=== PATIENT | female | born 1970 | race Native Hawaiian/Other Pacific Islander ===

== ENCOUNTER 2018-03-19 09:30 | Outpatient (AMBR) | payer MEDICAID, SELFPAY ==
--- NOTE | 2018-03-12 16:17 | PT.ODAYNRPT ---
PT Outpatient Daily Note Date of Service: March 12, 2018 OP Daily Note Visit Reasons: hand pain Outpatient Physical Therapy Treatment Date: 03/12/18 Subjective: pt had no complaints upon visit as she was feeling well. Objective: see flow sheet. Assessment: increased the number of reps for exercises in which pt did not c/o increased pain or discomfort. she was able to complete all reps with no difficulty. muscle fatigue during and after wrist roll up and she has to take breaks in between reps. no facial expressions noted during ther ex. pt has no questions post ther ex. Plan: continue POC per PT. Length of Time (minutes) of Treatment: 30 Minutes Office Procedures PT Procedures PT Date of Service: 03/12/18 Therapeutic Exercise 30 minutes: Yes
--- NOTE | 2018-03-19 10:00 | PT.ODS1RPT ---
PT OP Progress/Discharge Note Date of Service: March 19, 2018 Progress Note/DC Note Progress Note/Discharge Note: DC Note Patient Information Pediatric or Adult Patient: Adult PT >13 Visit Reasons: hand pain Medical Diagnosis: Carpal tunnel syndrome Treatment Dx #1: Hand pain Treatment Dx #2: muscle weakness Service Continue Service or Discharge: Discharge Physical Therapy Outpatient Service Dates: From: / To:: 11/17/2017 to 03/19/2018 Discharge Date: 03/19/18 Status Subjective: 47 y/o male who was seen here in this office for bilateral hand pain evaluated last 11/17/2017. patient states she feels better after therapy but it is only short term for a few hours. She feels pain after wards. She said she was wearing her hand brace as needed. PS 5/10 to 6/10. she states she will see her MD too for her back pain. Objective: PS 5/10 to 6/10 at worst R hand studio manager 40lbs, L hand studio manager 20lbs ms strength on biceps and triceps 4/5 I with HEP Assessment: patient was seen in this office for evaluation and 10 tx sessions. Patient has no significant improvement noted. She still has pain. The therapy effect is only short term. Patient were advised to see her PCP for follow up and for further instructions or management. As of this time patient reached maximum rehab potential. Plan: DC from skilled PT services. Treatment Provided This POC: Thera ex modalities (prn) Goals Achieved: PS to 5/10 on the wrist. Discharge Comment: dc secondary to patient reached maximum rehab potential. Office Procedures PT Procedures PT Date of Service: 03/12/18 Therapeutic Exercise 30 minutes: Yes
--- NOTE | 2018-03-19 10:11 | PTNOTE_ITS ---
PT OP Progress/Discharge Note Date of Service: March 19, 2018 Progress Note/DC Note Progress Note/Discharge Note: DC Note Patient Information Pediatric or Adult Patient: Adult PT >13 Visit Reasons: hand pain Medical Diagnosis: Carpal tunnel syndrome Treatment Dx #1: Hand pain Treatment Dx #2: muscle weakness Service Continue Service or Discharge: Discharge Physical Therapy Outpatient Service Dates: From: / To:: 11/17/2017 to 03/19/2018 Discharge Date: 03/19/18 Status Subjective: 47 y/o male who was seen here in this office for bilateral hand pain evaluated last 11/17/2017. patient states she feels better after therapy but it is only short term for a few hours. She feels pain after wards. She said she was wearing her hand brace as needed. PS 5/10 to 6/10. she states she will see her MD too for her back pain. Objective: PS 5/10 to 6/10 at worst R hand telephone clerk 40lbs, L hand telephone clerk 20lbs ms strength on biceps and triceps 4/5 I with HEP Assessment: patient was seen in this office for evaluation and 10 tx sessions. Patient has no significant improvement noted. She still has pain. The therapy effect is only short term. Patient were advised to see her PCP for follow up and for further instructions or management. As of this time patient reached maximum rehab potential. Plan: DC from skilled PT services. Treatment Provided This POC: Thera ex modalities (prn) Goals Achieved: PS to 5/10 on the wrist. Discharge Comment: dc secondary to patient reached maximum rehab potential. Office Procedures PT Procedures PT Date of Service: 03/12/18 Therapeutic Exercise 30 minutes: Yes
== END 2018-04-05 23:59 | disposition home or self-care (01) ==
PROVIDERS: PCP Obstetrics & Gynecology; Referring Provider Obstetrics & Gynecology; Visit Provider Physician Assistant
DX: M79.642 Pain in left hand (principal); M79.641 Pain in right hand; G89.29 Other chronic pain; R53.1 Weakness; G56.02 Carpal tunnel syndrome, left upper limb
CPT/HCPCS: 97110